=== PATIENT | female | born 1970 | race Caucasian/White ===

== ENCOUNTER 2016-12-22 10:27 | Emergency (ER) | payer SELFPAY ==
[~2016-12-22] VITALS: Ht 177.8 cm; Wt 120.2 kg
--- NOTE | 2016-12-22 11:25 | PHYS DOC ---
Past Medical History Past Medical History: Hypertension Past Surgical History: Additional Past Surgical Histo: HERNIA, D&C Alcohol Use: None Drug Use: None Adult General Chief Complaint Chief Complaint: CHEST WALL PAIN HPI HPI Patient is a 46 year old female with a history of htn the ED complaining of left rib pain 2 days. Patient states she works for [employer] ([employer]) and is a puller/ broadband technician. States she lifts objects. Reports pain with ROM. Denies any injury that she can recall. States she might have slept wrong. Denies shortness of breath, chest pain, dizziness, syncope, weakness, nausea/vomiting or abdominal pain. Review of Systems Review of Systems Constitutional: Denies fever or chills [] Eyes: Denies change in visual acuity, redness, or eye pain [] HENT: Denies nasal congestion or sore throat [] Respiratory: Denies cough or shortness of breath [] Cardiovascular: No additional information not addressed in HPI [] GI: Denies abdominal pain, nausea, vomiting, bloody stools or diarrhea [] : Denies dysuria or hematuria [] Musculoskeletal: Denies back pain or joint pain [] Integument: Denies rash or skin lesions [] Neurologic: Denies headache, focal weakness or sensory changes [] Endocrine: Denies polyuria or polydipsia [] Current Medications Current Medications Current Medications Medications (Trade) Dose Ordered Sig/Rakesh Start Time Stop Time Status Last Admin Dose Admin Ketorolac Tromethamine (Toradol) 30 mg 1X ONCE 12/22/16 13:15 12/22/16 13:16 DC 12/22/16 13:15 30 MG Allergies Allergies Allergies Coded Allergies Type Severity Reaction Last Updated Verified No Known Drug Allergies 12/22/16 No Physical Exam Physical Exam Constitutional: Well developed, well nourished, no acute distress, non-toxic appearance. [] HENT: Normocephalic, atraumatic, bilateral external ears normal, oropharynx moist, no oral exudates, nose normal. [] Eyes: PERRLA, EOMI, conjunctiva normal, no discharge. [] Neck: Normal range of motion, no tenderness, supple, no stridor. [] Cardiovascular:Heart rate regular rhythm, no murmur [] Lungs & Thorax: Bilateral breath sounds clear to auscultation. Mild lateral left rib tenderness, pain with lateral ROM and left arm flexion motion.[] Abdomen: Bowel sounds normal, soft, no tenderness, no masses, no pulsatile masses. [] Skin: Warm, dry, no erythema, no rash. [] Back: No tenderness, no CVA tenderness. [] Extremities: No bony tenderness, no cyanosis, no clubbing, ROM intact, no edema. [] Neurologic: Alert and oriented X 3, normal motor function, normal sensory function, no focal deficits noted. [] Psychologic: Affect normal, judgement normal, mood normal. [] Current Patient Data Vital Signs Vital Signs Date Time Temp Pulse Resp B/P (MAP) Pulse Ox O2 Delivery O2 Flow Rate FiO2 12/22/16 12:31 61 17 151/86 (107) 100 Room Air 12/22/16 11:00 97.8 97.8 Lab Values Laboratory Tests Test 12/22/16 11:02 12/22/16 11:25 POC Urine HCG, Qualitative Hcg negative (Negative) White Blood Count 7.2 x10^3/uL (4.0-11.0) Red Blood Count 4.53 x10^6/uL (3.50-5.40) Hemoglobin 14.1 g/dL (12.0-15.5) Hematocrit 41.2 % (36.0-47.0) Mean Corpuscular Volume 91 fL (79-100) Mean Corpuscular Hemoglobin 31 pg (25-35) Mean Corpuscular Hemoglobin Concent 34 g/dL (31-37) Red Cell Distribution Width 13.2 % (11.5-14.5) Platelet Count 248 x10^3/uL (140-400) Sodium Level 140 mmol/L (136-145) Potassium Level 4.0 mmol/L (3.5-5.1) Chloride Level 106 mmol/L (98-107) Carbon Dioxide Level 28 mmol/L (21-32) Anion Gap 6 (6-14) Blood Urea Nitrogen 8 mg/dL (7-20) Creatinine 0.7 mg/dL (0.6-1.0) Estimated GFR (Cockcroft-Gault) 90.9 BUN/Creatinine Ratio 11 (6-20) Glucose Level 87 mg/dL (70-99) Calcium Level 8.4 mg/dL (8.5-10.1) L Total Bilirubin 0.3 mg/dL (0.2-1.0) Aspartate Amino Transferase (AST) 14 U/L (15-37) L Alanine Aminotransferase (ALT) 26 U/L (14-59) Alkaline Phosphatase 56 U/L (46-116) Troponin I Quantitative < 0.017 ng/mL (0.000-0.055) Total Protein 6.8 g/dL (6.4-8.2) Albumin 3.4 g/dL (3.4-5.0) Albumin/Globulin Ratio 1.0 (1.0-1.7) Laboratory Tests 12/22/16 11:25 Laboratory Tests 12/22/16 11:25 EKG EKG Normal sinus rhythm at 60 bpm. Left axis deviation. No Stemi. Radiology/Procedures Radiology/Procedures PROCEDURE: RIBS LEFT AND PA CHEST Left RIBS with chest, 12/22/2016: History: Left-sided pain No rib fracture or destructive bony lesion is seen. There is no evidence of underlying pneumothorax, hemothorax or pulmonary infiltrate. There appear to be tiny granulomatous calcifications in the left upper chest. The heart size is normal. IMPRESSION: No significant left rib abnormality is detected.[] Course & Med Decision Making Course & Med Decision Making Pertinent Labs and Imaging studies reviewed. (See chart for details) []Discussed labs and imaging the patient. Patient's pain improved with medicine given in ED. Patient's pain is with range of motion and palpation. Pain relieved with analgesics in ED. Patient's pain does not seem cardiac in origin. Discussed chest x-ray imaging and findings with patient. Denies fever, cough, flu like or cardiac symptoms. Discussed the need to follow up with PCP this week for further evaluation of XR findings. Discussed the importance of follow- up and reasons to return to the ED. Patient understands and agrees with plan. Dragon Disclaimer Dragon Disclaimer This electronic medical record was generated, in whole or in part, using a voice recognition dictation system. Departure Departure Impression: Primary Impression: Chest wall pain Disposition: 01 HOME, SELF-CARE Condition: IMPROVED Referrals: UNKNOWN PCP NAME (PCP) CELE FARIAS MD Patient Instructions: Chest Wall Pain Scripts Tramadol Hcl (TRAMADOL HCL) 50 Mg Tablet 1 TAB PO PRN Q6HRS, #12 TAB Prov: JULIUS MCKEON 12/22/16 JULIUS MCKEON Dec 22, 2016 11:25
[2016-12-22 11:42] LABS: CALCIUM 8.4 mg/dL (8.5-10.1); CREATININE 0.7 mg/dL (0.6-1.0); GFR 90.9
[2016-12-22 11:46] LABS: HEMATOCRIT 41.2 % (36.0-47.0); HEMOGLOBIN 14.1 g/dL (12.0-15.5); RED BLOOD COUNT 4.53 x10^6/uL (3.50-5.40); RED CELL DISTRIBUTION WIDTH 13.2 % (11.5-14.5); WHITE BLOOD COUNT 7.2 x10^3/uL (4.0-11.0)
[2016-12-22 11:48] LABS: ALBUMIN 3.4 g/dL (3.4-5.0); TOTAL BILIRUBIN 0.3 mg/dL (0.2-1.0); TOTAL PROTEIN 6.8 g/dL (6.4-8.2)
--- NOTE | 2016-12-22 12:06 | RAD ---
Left RIBS with chest, 12/22/2016: History: Left-sided pain No rib fracture or destructive bony lesion is seen. There is no evidence of underlying pneumothorax, hemothorax or pulmonary infiltrate. There appear to be tiny granulomatous calcifications in the left upper chest. The heart size is normal. IMPRESSION: No significant left rib abnormality is detected.
[2016-12-22 12:31] VITALS: BP 151/86
[2016-12-22] MEDS ORDERED: TRAM50TA PO (12:49)
[2016-12-22] MEDS ORDERED: KETOROLAC 30 MG/ML INJ. IV ONE (13:15)
--- NOTE | 2016-12-22 13:51 | EKG ---
[facility] [address] [place] [address] Test Date: 2016-12-22 Test Time: 11:02:07 Pat Name: GILLES ALVAREZ Department: Room: Gender: F Court Crier: : 1970 Requested By: JULIUS MCKEON Order Number: [id number] Reading MD: Lizzy Yousif Measurements Intervals [place] Rate: 73 P: 38 [place]: 142 QRS: 22 QRSD: 82 T: 56 QT: 390 QTc: 433 Interpretive Statements SINUS RHYTHM LEFT ATRIAL ABNORMALITY QRS(T) CONTOUR ABNORMALITY CONSIDER ANTEROLATERAL MYOCARDIAL DAMAGE Electronically Signed On 12-25-2016 11:05:11 CDT by Lizzy Yousif
== END 2016-12-22 13:18 | disposition home or self-care (01) ==
LOC: ER 10:27
DX: R07.89 Other chest pain (principal); I10 Essential (primary) hypertension
CPT/HCPCS: 36415; 71101; 80053; 81025; 84484; 85027; 93005; 96374; 99285; J1885